=== PATIENT | male | born 1940 | race Caucasian/White ===

== ENCOUNTER 2017-06-15 20:00 | Emergency (ER) | payer MEDICARE, OTHER ==
[~2017-06-15] VITALS: Ht 182.9 cm; Wt 116.4 kg
[2017-06-15 20:23] VITALS: BP 126/70
== END 2017-06-15 21:29 ==
LOC: ER 20:01
DX: F10.129 Alcohol abuse with intoxication, unspecified (principal); G62.9 Polyneuropathy, unspecified; G89.29 Other chronic pain; Z98.890 Other specified postprocedural states; V43.52XA Car driver injured in collision with other type car in traffic accident, initial encounter; Y93.89 Activity, other specified; Y92.481 Parking lot as the place of occurrence of the external cause; Y99.8 Other external cause status
CPT/HCPCS: 99284

== ENCOUNTER 2020-04-30 20:09 | Emergency (ER) | payer BC, MEDICARE ==
[~2020-04-30] VITALS: Ht 182.9 cm; Wt 90.9 kg
[2020-04-30 21:00] VITALS: BP 143/102
== END 2020-04-30 21:03 ==
LOC: ER 20:09
DX: Z00.8 Encounter for other general examination (principal); M54.5 Low back pain; G89.29 Other chronic pain; Z98.890 Other specified postprocedural states; Z72.89 Other problems related to lifestyle
CPT/HCPCS: 99283

== ENCOUNTER 2021-09-10 08:08 | Day surgery (SDC) | payer MEDICARE ==
[2021-09-10] VITALS (16 sets, daily range): BP systolic 106–153; BP diastolic 61–86
[~2021-09-10] VITALS: Ht 182.9 cm; Wt 116.6 kg
[2021-09-10] MEDS ORDERED: fentaNYL/PF 50MCG/1 ML 2ML syringe IV ONE (08:30)
[2021-09-10] MEDS ORDERED: normal saline 1000ml 1,000 ML IV SCH (08:30)
[2021-09-10] MEDS ORDERED: MIDAZolam 1mg/ml 10ml vial IV ONE (08:30)
[2021-09-10] MEDS ORDERED: DESV100T PO (09:20)
[2021-09-10] MEDS ORDERED: SPIR25TA PO (09:20)
[2021-09-10] MEDS ORDERED: ESZO3TAB44 PO (09:20)
[2021-09-10] MEDS ORDERED: ACET-895 PO (09:20)
[2021-09-10] MEDS ORDERED: LOSA50TA64 PO (09:20)
[2021-09-10] MEDS ORDERED: GABA300C PO (09:20)
[2021-09-10] MEDS ORDERED: ATOR40TA71 PO (09:20)
[2021-09-10] MEDS ORDERED: AMIO200T27 PO (09:20)
[2021-09-10] MEDS ORDERED: METO-384 PO (09:20)
[2021-09-10] MEDS ORDERED: GUAN1TAB20 PO (09:20)
[2021-09-10] MEDS ORDERED: FLO0.4C PO (09:20)
[2021-09-10 09:25] LABS: BASOPHILS # (AUTO) 0.1 X10'3 (0-0.2); EOSINOPHILS # (AUTO) 0.3 X10'3 (0-0.9); HEMATOCRIT 42.9 % (42.0-52.0); HEMOGLOBIN 14.3 g/dl (14.0-17.9); LYMPHOCYTES % (AUTO) 34.6 % (21-51); MEAN CORPUSCULAR HEMOGLOBIN 29.3 PG (27.0-31.0); MEAN CORPUSCULAR HGB CONC 33.2 g/dL (33.0-36.5); MEAN CORPUSCULAR VOLUME 88.2 FL (78-98); MONOCYTES # (AUTO) 0.8 X10'3 (0-0.9); MONOCYTES % (AUTO) 8.9 % (2-12); NEUTROPHILS # (AUTO) 4.6 X10'3 (1.8-7.7); NEUTROPHILS % (AUTO) 52.5 % (42-75); PLATELET COUNT 139 X10'3 (140-440); RED BLOOD COUNT 4.87 X10'6 (4.70-6.10); RED CELL DISTRIBUTION WIDTH 14.2 % (11.5-14.5); WHITE BLOOD COUNT 8.7 X10'3 (4.5-11.0)
[2021-09-10 09:33] LABS: ALBUMIN 3.4 G/DL (3.4-5.0); ANION GAP 5 (8-16); BLOOD UREA NITROGEN 19 MG/DL (7-18); BUN/CREATININE RATIO 22.4 (5.4-32.0); CALCIUM 9.2 MG/DL (8.5-10.1); CHLORIDE 107 MMOL/L (99-107); CREATININE 0.85 MG/DL (0.60-1.10); GLUCOSE 130 MG/DL (70-104); POTASSIUM 3.9 MMOL/L (3.5-5.1); SODIUM 140 MMOL/L (135-145); TOTAL CARBON DIOXIDE 28.4 MMOL/L (24-32); eGFR 86 ML/MIN
[2021-09-10] MEDS ORDERED: atropine 0.1mg/ml 10ml syringe IV ONE (10:35)
== END 2021-09-10 12:00 | disposition home or self-care (01) ==
LOC: SSTAY O 08:08
PROVIDERS: ATTEND Internal Medicine Cardiovascular Disease
DX: I48.19 Other persistent atrial fibrillation (principal)
CPT/HCPCS: 36415; 80048; 83735; 85025; 85610; 92960; 93005; J2250; J3010; J7030; A4620

== ENCOUNTER 2022-04-11 10:58 | Day surgery (SDC) | payer MEDICARE ==
[2022-04-11] VITALS (12 sets, daily range): BP systolic 109–130; BP diastolic 55–98
[~2022-04-11] VITALS: Ht 182.9 cm; Wt 116.1 kg
[~2022-04-11 10:58] MED LIST: ACET-895 PO; AMIO200T27 PO; ATOR40TA71 PO; DESV100T PO; ESZO3TAB44 PO; FLO0.4C PO; GABA300C PO; GUAN1TAB20 PO; LOSA50TA64 PO; METO-384 PO; SPIR25TA PO
[2022-04-11] MEDS ORDERED: RIVA20TA PO (11:21)
[2022-04-11] MEDS ORDERED: KEN0.1O TP (11:21)
[2022-04-11] MEDS ORDERED: MIDAZolam 1mg/ml 10ml vial IV ONE (11:25)
[2022-04-11] MEDS ORDERED: fentaNYL/PF 50MCG/1 ML 2ML syringe IV ONE (11:25)
[2022-04-11] MEDS ORDERED: normal saline 1000ml 1,000 ML IV SCH (11:25)
[2022-04-11 12:01] LABS: BASOPHILS # (AUTO) 0.1 X10'3 (0-0.2); BASOPHILS % (AUTO) 0.9 % (0-1); EOSINOPHILS # (AUTO) 0.2 X10'3 (0-0.9); EOSINOPHILS % (AUTO) 2.7 % (0-6); HEMATOCRIT 45.2 % (42.0-52.0); LYMPHOCYTES # (AUTO) 2.8 X10'3 (1.1-4.8); LYMPHOCYTES % (AUTO) 30.8 % (21-51); MEAN CORPUSCULAR HEMOGLOBIN 30.1 PG (27.0-31.0); MEAN CORPUSCULAR HGB CONC 33.2 g/dL (33.0-36.5); MEAN CORPUSCULAR VOLUME 90.5 FL (78-98); MEAN PLATELET VOLUME 10.7 FL (7.4-10.4); MONOCYTES # (AUTO) 0.8 X10'3 (0-0.9); MONOCYTES % (AUTO) 8.9 % (2-12); NEUTROPHILS # (AUTO) 5.1 X10'3 (1.8-7.7); NEUTROPHILS % (AUTO) 56.7 % (42-75); PLATELET COUNT 153 X10'3 (140-440); WHITE BLOOD COUNT 9.1 X10'3 (4.5-11.0)
[2022-04-11] MEDS ORDERED: atropine 0.1mg/ml 10ml syringe ONE (12:04)
[2022-04-11 12:09] LABS: ALBUMIN 3.6 G/DL (3.4-5.0); ANION GAP 6 (8-16); BLOOD UREA NITROGEN 25 MG/DL (7-18); BUN/CREATININE RATIO 26.9 (5.4-32.0); CALCIUM 9.8 MG/DL (8.5-10.1); CHLORIDE 105 MMOL/L (99-107); CREATININE 0.93 MG/DL (0.60-1.10); GLUCOSE 152 MG/DL (70-104); MAGNESIUM 2.3 MG/DL (1.5-2.4); POTASSIUM 4.2 MMOL/L (3.5-5.1); SODIUM 142 MMOL/L (135-145); TOTAL CARBON DIOXIDE 30.7 MMOL/L (24-32); eGFR 78 ML/MIN
== END 2022-04-11 13:15 | disposition home or self-care (01) ==
LOC: SSTAY O 10:58
PROVIDERS: ATTEND Internal Medicine Cardiovascular Disease
DX: I48.91 Unspecified atrial fibrillation (principal); I10 Essential (primary) hypertension; E78.00 Pure hypercholesterolemia, unspecified; E11.9 Type 2 diabetes mellitus without complications; Z98.890 Other specified postprocedural states; Z79.899 Other long term (current) drug therapy; Z88.8 Allergy status to other drugs, medicaments and biological substances; Z82.3 Family history of stroke; Z80.9 Family history of malignant neoplasm, unspecified
CPT/HCPCS: 80048; 82948; 83735; 85025; 85610; 92960; 93005; J0461; J2250; J3010; J7030; A4615; A4620

== ENCOUNTER 2022-09-16 07:54 | Day surgery (SDC) | payer MEDICARE ==
[2022-09-16] VITALS (7 sets, daily range): BP systolic 90–123; BP diastolic 42–86; PULSE 55–61; RESP 15–18; TEMP 97.9; O2SAT 92–95
[~2022-09-16] VITALS: Ht 182.9 cm; Wt 111.8 kg
[~2022-09-16 07:54] MED LIST changes: -ACET-895 PO; +KEN0.1O TP; -LOSA50TA64 PO; +RIVA20TA PO
[2022-09-16] MEDS ORDERED: vancomycin 1,500 MG in NS 300ml IV soln IV ONE (08:17)
[2022-09-16] MEDS ORDERED: cefazolin 2gm/D5W 100mL 100 ML IV ONE (08:17)
[2022-09-16] MEDS ORDERED: normal saline 1000ml 1,000 ML IV SCH (08:20)
[2022-09-16 09:48] LABS: BASOPHILS # (AUTO) 0.1 X10'3 (0-0.2); BASOPHILS % (AUTO) 0.9 % (0-1); EOSINOPHILS # (AUTO) 0.2 X10'3 (0-0.9); EOSINOPHILS % (AUTO) 1.3 % (0-6); HEMATOCRIT 46.5 % (42.0-52.0); HEMOGLOBIN 15.3 g/dl (14.0-17.9); LYMPHOCYTES # (AUTO) 2.6 X10'3 (1.1-4.8); LYMPHOCYTES % (AUTO) 22.2 % (21-51); MEAN CORPUSCULAR HGB CONC 32.9 g/dL (33.0-36.5); MEAN CORPUSCULAR VOLUME 91.2 FL (78-98); MEAN PLATELET VOLUME 10.8 FL (7.4-10.4); MONOCYTES # (AUTO) 0.8 X10'3 (0-0.9); MONOCYTES % (AUTO) 7.2 % (2-12); NEUTROPHILS % (AUTO) 68.4 % (42-75); PLATELET COUNT 140 X10'3 (140-440); RED CELL DISTRIBUTION WIDTH 14.6 % (11.5-14.5); WHITE BLOOD COUNT 11.7 X10'3 (4.5-11.0)
[2022-09-16 09:58] LABS: ALBUMIN 3.6 G/DL (3.4-5.0); ANION GAP 10 (8-16); BLOOD UREA NITROGEN 20 MG/DL (7-18); BUN/CREATININE RATIO 22.5 (10.0-20.0); CALCIUM 9.8 MG/DL (8.5-10.1); CHLORIDE 103 MMOL/L (99-107); CREATININE 0.89 MG/DL (0.60-1.10); GLUCOSE 140 MG/DL (70-104); MAGNESIUM 2.3 MG/DL (1.5-2.4); POTASSIUM 4.3 MMOL/L (3.5-5.1); SODIUM 141 MMOL/L (135-145); TOTAL CARBON DIOXIDE 27.7 MMOL/L (24-32); eGFR 81 ML/MIN
[2022-09-16] MEDS ORDERED: LIDOcaine 1% W/epiNEPHrine 1:100,000 20ml vial ONE (10:58)
[2022-09-16] MEDS ORDERED: midazolam 1 mg/ML 2ml injection ONE ×4 (10:58→12:35)
[2022-09-16] MEDS ORDERED: vancomycin 1,000mg inj ONE (10:59)
[2022-09-16] MEDS ORDERED: fentaNYL/PF 50MCG/1 ML 2ML syringe ONE ×2 (10:59→12:02)
[2022-09-16] MEDS ORDERED: CLINDAMYCIN 600mg IN NS 50ML 50 ML IV ONE (11:14)
[2022-09-16] MEDS ORDERED: LIDOCAINE 2%/EPI 1:100,000 inj. Multi-dose 20 ML VIAL ONE (11:33)
[2022-09-16] MEDS ORDERED: iohexol 350 MG/ML 50ML vial IV ONE (11:51)
[2022-09-16] MEDS ORDERED: normal saline 500ml IV soln 500 ML IV SCH (13:45)
== END 2022-09-16 15:25 | disposition home or self-care (01) ==
LOC: SSTAY O 07:54
PROVIDERS: ATTEND Internal Medicine Cardiovascular Disease
DX: I49.5 Sick sinus syndrome (principal); I48.91 Unspecified atrial fibrillation; I25.10 Atherosclerotic heart disease of native coronary artery without angina pectoris; I10 Essential (primary) hypertension; E78.00 Pure hypercholesterolemia, unspecified; E11.9 Type 2 diabetes mellitus without complications; Z79.899 Other long term (current) drug therapy; Z98.890 Other specified postprocedural states; F10.91 Alcohol use, unspecified, in remission; Z91.041 Radiographic dye allergy status; Z87.891 Personal history of nicotine dependence; Z82.3 Family history of stroke; Z80.9 Family history of malignant neoplasm, unspecified
CPT/HCPCS: 33208; 71045; 80048; 83735; 85025; 85610; 93005; 99152; 99153; C1785; C1898; J2250; J3010; J3370; J3490; J7030; J7040; Q9967

== ENCOUNTER 2022-11-07 11:29 | Emergency (ER) | payer MEDICARE ==
[~2022-11-07] VITALS: Ht 182.9 cm; Wt 99.0 kg
[~2022-11-07 11:29] MED LIST changes: -GUAN1TAB20 PO; -SPIR25TA PO
[2022-11-07] MEDS ORDERED: iohexol 350MG/ML 100ml bottle IV ONE (17:53)
[2022-11-07 18:26] LABS: BASOPHILS # (AUTO) 0.1 X10'3 (0-0.2); BASOPHILS % (AUTO) 0.9 % (0-1); EOSINOPHILS # (AUTO) 0.2 X10'3 (0-0.9); EOSINOPHILS % (AUTO) 1.5 % (0-6); HEMATOCRIT 47.9 % (42.0-52.0); HEMOGLOBIN 15.8 g/dl (14.0-17.9); LYMPHOCYTES # (AUTO) 3.7 X10'3 (1.1-4.8); LYMPHOCYTES % (AUTO) 32.8 % (21-51); MEAN CORPUSCULAR HEMOGLOBIN 29.7 PG (27.0-31.0); MEAN CORPUSCULAR HGB CONC 32.9 g/dL (33.0-36.5); MEAN CORPUSCULAR VOLUME 90.2 FL (78-98); MEAN PLATELET VOLUME 10.3 FL (7.4-10.4); MONOCYTES # (AUTO) 1.2 X10'3 (0-0.9); MONOCYTES % (AUTO) 10.4 % (2-12); NEUTROPHILS # (AUTO) 6.1 X10'3 (1.8-7.7); NEUTROPHILS % (AUTO) 54.4 % (42-75); PLATELET COUNT 190 X10'3 (140-440); RED BLOOD COUNT 5.32 X10'6 (4.70-6.10); RED CELL DISTRIBUTION WIDTH 14.3 % (11.5-14.5); WHITE BLOOD COUNT 11.3 X10'3 (4.5-11.0)
[2022-11-07 18:34] LABS: INR 1.1 INR; PROTHROMBIN TIME 11.4 SECONDS (9.0-12.0)
[2022-11-07 18:39] LABS: ALANINE AMINOTRANSFERASE 37 U/L (12-78); ALBUMIN 3.8 G/DL (3.4-5.0); ALKALINE PHOSPHATASE 80 IU/L (46-116); ANION GAP 10 (8-16); ASPARTATE AMINO TRANSFERASE 23 U/L (10-37); BILIRUBIN,TOTAL 0.7 MG/DL (0.1-1.0); BLOOD UREA NITROGEN 15 MG/DL (7-18); BUN/CREATININE RATIO 17.9 (10.0-20.0); CALCIUM 10.1 MG/DL (8.5-10.1); CHLORIDE 104 MMOL/L (99-107); CREATININE 0.84 MG/DL (0.60-1.10); GLUCOSE 95 MG/DL (70-104); POTASSIUM 3.7 MMOL/L (3.5-5.1); SODIUM 140 MMOL/L (135-145); TOTAL CARBON DIOXIDE 25.9 MMOL/L (24-32); TOTAL PROTEIN 7.7 G/DL (6.4-8.2); eCRCL 72 ML/MIN; eGFR 87 ML/MIN
[2022-11-07 19:16] VITALS: BP 152/108; PULSE 72; RESP 11; O2SAT 94
[2022-11-07 22:03] VITALS: TEMP 97.6
== END 2022-11-07 22:07 | disposition home or self-care (01) ==
LOC: ER 11:29
DX: H11.32 Conjunctival hemorrhage, left eye (principal); R19.00 Intra-abdominal and pelvic swelling, mass and lump, unspecified site
CPT/HCPCS: 36415; 74018; 74174; 80053; 85025; 85610; 93978; 99285; J3490; Q9967

== ENCOUNTER 2023-01-30 09:35 | Day surgery (SDC) | payer MEDICARE ==
[2023-01-30] VITALS (8 sets, daily range): BP systolic 108–124; BP diastolic 50–67; PULSE 40–63; RESP 10–16; TEMP 97.7; O2SAT 91–95
[~2023-01-30] VITALS: Ht 182.9 cm; Wt 112.4 kg
[2023-01-30] MEDS ORDERED: vancomycin 1,500 MG in NS 300ml IV soln IV ONE (10:06)
[2023-01-30] MEDS ORDERED: cefazolin 2gm/D5W 100mL 100 ML IV ONE (10:06)
[2023-01-30] MEDS ORDERED: normal saline 1000ml 1,000 ML IV SCH (10:06)
[2023-01-30] MEDS ORDERED: GUAN1TAB20 PO (10:27)
[2023-01-30] MEDS ORDERED: LOSA50TA64 PO (10:27)
[2023-01-30] MEDS ORDERED: SPIR25TA5 PO (10:27)
[2023-01-30 10:30] LABS: BASOPHILS # (AUTO) 0.1 X10'3 (0-0.2); BASOPHILS % (AUTO) 0.5 % (0-1); EOSINOPHILS # (AUTO) 0.3 X10'3 (0-0.9); EOSINOPHILS % (AUTO) 2.9 % (0-6); HEMATOCRIT 43.8 % (42.0-52.0); HEMOGLOBIN 14.3 g/dl (14.0-17.9); LYMPHOCYTES # (AUTO) 3.2 X10'3 (1.1-4.8); LYMPHOCYTES % (AUTO) 29.2 % (21-51); MEAN CORPUSCULAR HEMOGLOBIN 29.4 PG (27.0-31.0); MEAN CORPUSCULAR HGB CONC 32.7 g/dL (33.0-36.5); MEAN CORPUSCULAR VOLUME 89.8 FL (78-98); MEAN PLATELET VOLUME 10.4 FL (7.4-10.4); MONOCYTES % (AUTO) 9.1 % (2-12); NEUTROPHILS # (AUTO) 6.3 X10'3 (1.8-7.7); NEUTROPHILS % (AUTO) 58.3 % (42-75); PLATELET COUNT 165 X10'3 (140-440); RED BLOOD COUNT 4.88 X10'6 (4.70-6.10); RED CELL DISTRIBUTION WIDTH 14.5 % (11.5-14.5); WHITE BLOOD COUNT 10.8 X10'3 (4.5-11.0)
[2023-01-30 10:37] LABS: ALBUMIN 3.6 G/DL (3.4-5.0); ANION GAP 8 (8-16); BLOOD UREA NITROGEN 18 MG/DL (7-18); BUN/CREATININE RATIO 20.2 (10.0-20.0); CALCIUM 9.5 MG/DL (8.5-10.1); CHLORIDE 103 MMOL/L (99-107); CREATININE 0.89 MG/DL (0.60-1.10); GLUCOSE 127 MG/DL (70-104); MAGNESIUM 2.3 MG/DL (1.5-2.4); POTASSIUM 3.6 MMOL/L (3.5-5.1); SODIUM 139 MMOL/L (135-145); TOTAL CARBON DIOXIDE 27.7 MMOL/L (24-32); eCRCL 68 ML/MIN; eGFR 81 ML/MIN
[2023-01-30 10:39] LABS: INR 1.2 INR; PROTHROMBIN TIME 12.6 SECONDS (9.0-12.0)
[2023-01-30] MEDS ORDERED: clindamycin-Cleocin 900mg/D5W 50 ML IV ONE (10:40)
[2023-01-30] MEDS ORDERED: vancomycin 1,000mg inj ONE (11:38)
[2023-01-30] MEDS ORDERED: fentaNYL/PF 50MCG/1 ML 2ML syringe ONE (11:38)
[2023-01-30] MEDS ORDERED: midazolam 1 mg/ML 2ml injection ONE ×2 (11:38→12:55)
[2023-01-30] MEDS ORDERED: LIDOcaine 1% W/epiNEPHrine 1:100,000 20ml vial ONE (11:38)
[2023-01-30] MEDS ORDERED: HYDROmorphone 1 mg/ml syringe ONE (13:00)
== END 2023-01-30 15:26 | disposition home or self-care (01) ==
LOC: SSTAY O 09:35
PROVIDERS: ATTEND Internal Medicine Cardiovascular Disease
DX: T82.120A Displacement of cardiac electrode, initial encounter (principal); I48.91 Unspecified atrial fibrillation; E11.9 Type 2 diabetes mellitus without complications; I10 Essential (primary) hypertension; I25.10 Atherosclerotic heart disease of native coronary artery without angina pectoris; I49.5 Sick sinus syndrome; F10.91 Alcohol use, unspecified, in remission; Z79.899 Other long term (current) drug therapy; Z91.041 Radiographic dye allergy status; Z95.0 Presence of cardiac pacemaker; Z82.3 Family history of stroke; Z80.9 Family history of malignant neoplasm, unspecified; Y83.8 Other surgical procedures as the cause of abnormal reaction of the patient, or of later complication, without mention of misadventure at the time of the procedure; Y92.89 Other specified places as the place of occurrence of the external cause
CPT/HCPCS: 33215; 33216; 33235; 36415; 71045; 80048; 83735; 85025; 85610; 93005; 99152; 99153; C1898; J1170; J2250; J3010; J3370; J3490; J7030; 33234; A4565; A4615; A6258

== ENCOUNTER 2023-09-10 23:29 | Emergency (ER) | payer MEDICARE ==
[~2023-09-10] VITALS: Ht 182.9 cm; Wt 113.6 kg
[~2023-09-10 23:29] MED LIST changes: +GUAN1TAB20 PO; +LOSA50TA64 PO; -METO-384 PO; +SPIR25TA5 PO
[2023-09-11 00:19] LABS: BASOPHILS # (AUTO) 0.1 X10'3 (0-0.2); BASOPHILS % (AUTO) 0.6 % (0-1); EOSINOPHILS # (AUTO) 0.3 X10'3 (0-0.9); EOSINOPHILS % (AUTO) 2.9 % (0-6); HEMATOCRIT 47.9 % (42.0-52.0); HEMOGLOBIN 15.8 g/dl (14.0-17.9); LYMPHOCYTES # (AUTO) 3.7 X10'3 (1.1-4.8); LYMPHOCYTES % (AUTO) 34.7 % (21-51); MEAN CORPUSCULAR HEMOGLOBIN 29.7 PG (27.0-31.0); MEAN CORPUSCULAR HGB CONC 33.1 g/dL (33.0-36.5); MEAN CORPUSCULAR VOLUME 89.7 FL (78-98); MEAN PLATELET VOLUME 10.3 FL (7.4-10.4); MONOCYTES # (AUTO) 0.7 X10'3 (0-0.9); MONOCYTES % (AUTO) 6.2 % (2-12); NEUTROPHILS % (AUTO) 55.6 % (42-75); PLATELET COUNT 168 X10'3 (140-440); RED BLOOD COUNT 5.33 X10'6 (4.70-6.10); RED CELL DISTRIBUTION WIDTH 14.1 % (11.5-14.5); WHITE BLOOD COUNT 10.8 X10'3 (4.5-11.0)
[2023-09-11 00:30] LABS: ALANINE AMINOTRANSFERASE 41 U/L (12-78); ALBUMIN 3.6 G/DL (3.4-5.0); ALBUMIN/GLOBULIN RATIO 0.9 (1.1-1.5); ALKALINE PHOSPHATASE 79 IU/L (46-116); ANION GAP 9 (8-16); ASPARTATE AMINO TRANSFERASE 21 U/L (10-37); BILIRUBIN,TOTAL 0.5 MG/DL (0.1-1.0); BLOOD UREA NITROGEN 25 MG/DL (7-18); BUN/CREATININE RATIO 25.8 (10.0-20.0); CALCIUM 9.9 MG/DL (8.5-10.1); CHLORIDE 104 MMOL/L (99-107); CREATININE 0.97 MG/DL (0.60-1.10); GLUCOSE 135 MG/DL (70-104); LIPASE 39 U/L (16-77); POTASSIUM 3.7 MMOL/L (3.5-5.1); SODIUM 143 MMOL/L (135-145); TOTAL CARBON DIOXIDE 30.3 MMOL/L (24-32); TOTAL PROTEIN 7.5 G/DL (6.4-8.2); eCRCL 61 ML/MIN; eGFR 74 ML/MIN
[2023-09-11 03:02] VITALS: BP 141/91; PULSE 66; RESP 17; TEMP 98.2; O2SAT 96
[2023-09-11] MEDS: LORazepam 1 MG tablet PO ONE (03:04)
== END 2023-09-11 03:06 | disposition home or self-care (01) ==
LOC: ER 23:30
DX: F41.9 Anxiety disorder, unspecified (principal); K59.00 Constipation, unspecified; R10.9 Unspecified abdominal pain; G89.29 Other chronic pain; M54.50 Low back pain, unspecified; Z88.0 Allergy status to penicillin; Z79.899 Other long term (current) drug therapy
CPT/HCPCS: 36415; 80053; 83690; 85025; 93005; 99284

== ENCOUNTER 2024-09-08 12:33 | Emergency (ER) | payer MEDICARE ==
[~2024-09-08] VITALS: Ht 182.9 cm; Wt 118.0 kg
[2024-09-08 12:46] VITALS: TEMP 99.1
--- NOTE | 2024-09-08 14:44 | RADIOLOGY REPORT ---
DI OS CALCIS (HEEL), X-Ray Radiation Dose Structure Report HISTORY: heel infection TECHNICAL DATA: Lateral and So-Beath views were obtained of the right calcaneus. COMPARISON: None FINDINGS: No acute fracture or dislocation. Soft tissue swelling in the heel and posterior to the calcaneus. Heel spur. Ankle joint effusion. IMPRESSION: 1. No evidence of calcaneal fracture. Soft tissue swelling.
[2024-09-08] MEDS ORDERED: DOXY-1 PO (17:19)
[2024-09-08] MEDS ORDERED: CEPH500C81 PO (17:19)
--- NOTE | 2024-09-08 17:20 | Physician Documentation ---
History of Present Illness ~ Chief Complaint: Leg Pain Stated Complaint: FOOT INFECTION Time Seen by MD: 12:41 Primary Medical Doctor: rupal Source: patient, family () Mode of Arrival: EMS HPI patient presents with left heel pain. A few days ago he stepped on something while barefoot walking around his house. Thinks it may have been a toothpick. Pulled out FB yesterday. Tetanus witin 5 years: Yes Medication Reconciliation Allergies: Coded Allergies: Penicillins (Verified Allergy, Unknown, 09/16/22) Uncoded Allergies: TOPICAL IODINE (Allergy, Unknown, 11/07/22) Scheduled Amiodarone HCl (Amiodarone HCl), 1 TAB PO DAILY, (Reported) Atorvastatin Calcium (Atorvastatin Calcium), 1 TAB PO DAILY, (Reported) Cephalexin (Cephalexin), 1 CAP PO Q6H Desvenlafaxine Succinate (Pristiq ER), 2 TAB PO DAILY, (Reported) Doxycycline Hyclate (Doxycycline Hyclate), 1 CAP PO Q12H Gabapentin (Neurontin), 2 CAP PO Q6H, (Reported) Guanfacine HCl (Intuniv), 1 TAB PO QAM, (Reported) Losartan Potassium (Losartan Potassium), 1 TAB PO DAILY, (Reported) Rivaroxaban (Xarelto), 1 TAB PO DAILY, (Reported) Spironolactone (Spironolactone), 1 TAB PO DAILY, (Reported) Tamsulosin Hcl (Flomax), 0.4 MG PO DAILY, (Reported) Triamcinolone Acetonide 0.1% Crm* (Kenalog 0.1% Crm*), 1 APPLIC TP BID, (Reported) Scheduled PRN Eszopiclone (Eszopiclone), 1 TAB PO HSPRN PRN for sleep, (Reported) Past Medical History Past Medical History: Peripheral Neuropathy, *MUSCULOSKELETAL*, Chronic Back Pain Past Surgical History: orthopedic surgeries Smoking Status: Never smoker Alcohol Use: Alcoholic Drug Use: none Lives with: Family Lives In: Home Occupation: employed Review of Systems All Other Systems at this time: Reviewed and Negative Constitutional: Denies: fever Physical Exam Vital Signs: Temperature: 99.1, Source: Oral, Heart Rate: 63, Respiratory Rate: 16, BP: 140/67, Pulse Oximetry: 95, Weight: 118.000 Oxygen Flow Rate: 0 Physical Exam well appearing no distress awake alert oriented left heel abscess and erythema. no dorsal swelling or erythema. Procedures I&D Procedure : Anesthesia: Lidocaine Prep/Supplies: betadine prep, drapes applied Incision: pus drained Tolerated Procedure Well?: yes, no complications Procedure Note incised, no fb, agressively debrided purulent and necrotic tissue, 3-4 ml pus. 3cm deep tracking wound to base of calcaneous Progress Results/Orders Reviewed/noted all lab results: Yes Results/Orders Orders - NAN PRESCOTT MD Os Calcis (Heel) (09/08/24 13:58) Completed Orders - NAN PRESCOTT MD Os Calcis (Heel) (09/08/24 13:58) Cephalexin Capsule (Keflex Capsule) (09/08/24 17:15) Doxycycline 100mg Capsule (Vibramycin 10 (09/08/24 17:11) Vital Signs 09/08/24 09/08/24 09/08/24 12:36 12:46 12:46 Temp 99.1 99.1 Pulse 86 63 Resp 16 16 16 B/P (MAP) 140/67 140/67 (91) Pulse Ox 94 95 O2 Flow Rate 0 0 Medical Decision Making Toe Diff Dx:Considerations: Include: Cellulitis, Fracture, Hematoma, Laceration Departure Disposition: 01 HOME / SELF CARE / HOMELESS Impression: Primary Impression: Foot abscess, left Additional Instructions: Please start taking the cephalexin tonight, first dose just before bed. The next dose will be in the morning take every 6 hours if possible. The doxycycline you will start tomorrow morning, take once in the AM and once in the evenings. Keep it elevated as much as possible, soak it in warm water and change the gauze daily. Return for spreading redness or fever. Referrals: NO PRIMARY CARE PROVIDER (PCP) Prescriptions Doxycycline Hyclate (Doxycycline Hyclate) 100 Mg Capsule 1 CAP PO Q12H for 10 Days, #20 CAP Prov: NAN PRESCOTT MD 09/08/24 Cephalexin (Cephalexin) 500 Mg Capsule 1 CAP PO Q6H for 10 Days, #40 CAP Prov: NAN PRESCOTT MD 09/08/24 Signature Scribe Signature: na Attestation: NAN Malloy MD Sep 08, 2024 17:20
[2024-09-08] MEDS: oxyCODONE IR 5mg (immed. release) tablet PO ONE (17:35)
[2024-09-08] MEDS: DOXYCYCLINE 100MG CAPSULE PO STA (17:35)
[2024-09-08 17:38] VITALS: BP 108/60; PULSE 60; RESP 16; O2SAT 98
== END 2024-09-08 17:39 | disposition home or self-care (01) ==
LOC: ER 12:34
DX: L02.612 Cutaneous abscess of left foot (principal); F10.90 Alcohol use, unspecified, uncomplicated; Z88.0 Allergy status to penicillin; Z88.8 Allergy status to other drugs, medicaments and biological substances; Y90.9 Presence of alcohol in blood, level not specified
CPT/HCPCS: 10060; 73650; 99283; A6266; A6258; A6407; A6446; A6449